=== PATIENT | female | born 1985 | race African-American/Black ===

== ENCOUNTER 2018-04-02 20:22 | Emergency (ER) | payer SELFPAY ==
[~2018-04-02] VITALS: Ht 162.6 cm; Wt 69.6 kg
[~2018-04-02 20:22] MED LIST: BENADRY2 EX; BENADRYL 50MG C50 MG OR; BENADRYL 50MG C50 MG PO; BENADRYL1 CRE EX; DONATUSSI8 PO; FIORICET PO; PROMETHAZINE25 MG OR; PROTONIX40 MG OR; ULTRAM50 M1 PO; ZPAK PO; no medications
[2018-04-02] MEDS ORDERED: DOXYCYCL HYC100 MG PO (20:43)
[2018-04-02] MEDS ORDERED: NAPROSYN500 MG PO (20:43)
[2018-04-02 21:04] VITALS: BP 112/69
== END 2018-04-02 21:04 | disposition home or self-care (01) | DRG 603 ==
LOC: ED 20:22
DX: L03.012 Cellulitis of left finger (principal)

== ENCOUNTER 2018-04-19 22:30 | Emergency (ER) | payer SELFPAY ==
[~2018-04-19] VITALS: Ht 162.6 cm; Wt 68.0 kg
[~2018-04-19 22:30] MED LIST changes: +DOXYCYCL HYC100 MG PO; +NAPROSYN500 MG PO
[2018-04-19] MEDS ORDERED: DOXYCYC MONO100 M2 PO (22:51)
[2018-04-19 23:03] VITALS: BP 114/69
== END 2018-04-19 23:03 | disposition home or self-care (01) | DRG 603 ==
LOC: ED 22:30
DX: L03.012 Cellulitis of left finger (principal); M79.645 Pain in left finger(s)

== ENCOUNTER 2021-08-17 16:45 | Emergency (ER) | payer SELFPAY ==
[~2021-08-17] VITALS: Ht 162.6 cm; Wt 65.4 kg
[~2021-08-17 16:45] MED LIST changes: +DOXYCYC MONO100 M2 PO
[2021-08-17 17:35] LABS: HEMATOCRIT 35.3 % (37.0-47.0); HEMOGLOBIN 11.5 g/dl (12.0-16.0); MEAN CELL VOLUME 99.4 fL CALC (80.0-100.0); MEAN CORPUSCULAR HGB 32.4 pG CALC (26.0-32.0); MEAN CORPUSCULAR HGB CONC 32.6 g/dL CAL (32.0-36.0); NEUT# 2.32 thou/uL (2.00-7.15); RED BLOOD COUNT 3.55 mill/uL (4.20-5.60); RED CELL DISTRI WIDTH 13.5 % (11.5-15.5)
[2021-08-17 17:53] LABS: ALBUMIN 3.9 g/dL (3.2-5.0); ALKALINE PHOSPHATASE 39 u/l (38-126); ANION GAP 10 (6-22 (CALC)); BILIRUBIN, TOTAL 0.4 mg/dL (0.0-1.4); BUN 9 mg/dL (7-17); BUN/CREATININE RATIO 12 (12-20 (CALC)); CARBON DIOXIDE 24 mmol/l (22-30); CHLORIDE 109 mmol/l (95-108); CREATININE 0.7 mg/dL (0.5-1.0); GFR > 60 ML/MIN (>=60 (CALC)); GFR FOR AFR.AMER. > 60 ML/MIN (>=60 (CALC)); POTASSIUM 3.8 mmol/l (3.5-5.1); SGOT/AST 17 u/l (14-36); SODIUM 139 mmol/l (137-146); TOTAL PROTEIN 6.8 g/dL (6.3-8.2)
[2021-08-17 20:50] VITALS: BP 122/80
== END 2021-08-17 20:54 | disposition home or self-care (01) | DRG 761 ==
LOC: ED 16:45
PROVIDERS: Family Medicine
DX: N93.9 Abnormal uterine and vaginal bleeding, unspecified (principal); D35.2 Benign neoplasm of pituitary gland; F17.290 Nicotine dependence, other tobacco product, uncomplicated